=== PATIENT | female | born 1985 | race Caucasian/White ===

== ENCOUNTER → 2020-11-24 | Outpatient (CLI) | payer OTHER ==
--- NOTE | 2020-11-25 03:46 | KCIC ---
Study: MR cervical spine without contrast INDICATION: Cervical radiculopathy. Right upper extremity numbness. COMPARISON: None. TECHNIQUE: Multiplanar MR imaging of the cervical spine performed without the use of intravenous cont rast. FINDINGS: Normal cord signal and morphology. The visualized posterior fossa contents are unremarkable. Marrow signal is within normal limits. Maintained vertebral body and disc space height. No listhesis. Unremarkable prevertebral and dorsal paraspinous soft tissues. Tornwaldt cyst incidentally noted. Yusra tebral artery flow voids are maintained. C1-C2: The region of the foramen magnum is patent. C2-C3: Mild left paracentral disc osteophyte protrusion and left uncovertebral joint hypertrophy. No significant facet arthrosis. Patent central canal and neural foramina. C3-C4: Uncovertebral joint hypertrophy on the left. Mild left facet arthrosis. Patent central canal a nd neural foramina. C4-C5: Mild uncovertebral joint hypertrophy on the left. Unremarkable facet joints. Patent central ca nal and neural foramina. C5-C6: Mild uncovertebral joint hypertrophy on the left. Unremarkable facet joints. Patent central ca nal and neural foramina. C6-C7: Trace central protrusion.. No significant facet arthrosis. Patent central canal and neural for allison. C7-T1: No significant spondylosis. Patent central canal and neural foramina. T1-T2 and T2-T3: Patent central canal and neural foramina. IMPRESSION: Only mild degenerative changes, as outlined above, without any associated central canal or neural for aminal stenosis. Normal cord signal and morphology. Electronically signed by: JOHNSON TOTH MD (11/25/2020 3:43 AM) [facility]
== END ==
LOC: KCIC MRI 13:09
PROVIDERS: ATTEND Family Medicine
DX: M47.22 Other spondylosis with radiculopathy, cervical region (principal)
CPT/HCPCS: 72141

== ENCOUNTER → 2021-01-19 | Outpatient (CLI) | payer OTHER ==
--- NOTE | 2021-01-19 11:59 | KCIC ---
Bilateral diagnostic digital mammograms with 3-D tomosynthesis: Reason for examination: Right breast lump and pain since October. Second Covid vaccination on 021. Baseline exam. Bilateral mammograms in CC and oblique projections were obtained with 2-D imaging and 3-D tomosynthes is imaging on a Siemens Inspiration unit and reviewed on the workstation. Interpretation was made wit h the benefit of CAD. The skin and nipples show no abnormalities. No abnormal axillary lymph nodes are seen. The breast par enchyma is extremely dense. (Breast density: Category D.) There is a small circumscribed nodule at th e 10:00 position of the right breast which appears circumscribed and measures 8.8 mm in greatest dime nsion and is located approximately 5 cm from the nipple. There is improvement in the axillary tail of Luna corresponds to the area of clinical concern. There are no other dominant masses, suspicious c alcifications or architectural distortion. Impression: Small nodule at the 10:00 position of the right breast 5 cm from the nipple. Tissue at the axillary t ail of Luna corresponds to the area of clinical concern. Ultrasound to follow. Your patient's mammogram demonstrates that she has dense breast tissue (breast density category C or D), which could hide abnormalities, and if she has other risk factors for breast cancer that have bee n identified, she might benefit from supplemental screening tests that may be suggested by you as her ordering physician. Dense breast tissue, in and of itself, is a relatively common condition. Therefo re, this information is not provided to cause undue concern, but rather to raise your awareness and t o promote discussion with your patient regarding the presence of other risk factors, in addition to d ense breast tissue. Your patient's mammography results will be sent to her. BI-RAD Category 0: Incomplete. Needs additional imaging evaluation. Right breast ultrasound: Ultrasound examination of the right breast and axilla was performed. At the 10:00 position 5 cm from the nipple and corresponding to the nodule seen mammographically, there is a intramammary lymph node measuring 8.3 mm in greatest dimension which shows normal cortical thickness and fatty cortex. No tabitha picious lesions are seen in the breast. In the area of concern at the axillary tail of Luna, there is some fibroglandular tissue but no focal nodules. No abnormal appearing lymph nodes are seen in the right axilla. IMPRESSION: Small benign-appearing intramammary lymph node at the 10:00 position 5 cm from the nipple. Fibrogland ular tissue at the axillary tail of Jeremy corresponds to the area of clinical concern with no focal lesions seen at the site. Recommend clinical follow-up and routine mammographic follow-up. BI-RADS Category 2: Benign. "Our facility is accredited by the [employer] Mammography Program." This patient's information has been entered into a reminder system for the patient to be notified wit h the results of her examination and a target date for the next mammogram. Electronically signed by: Kourtney Skinner MD (01/19/2021 11:56 AM) [id number]
== END ==
LOC: KCIC US 09:00
PROVIDERS: ATTEND Obstetrics & Gynecology
DX: N64.4 Mastodynia (principal); N63.11 Unspecified lump in the right breast, upper outer quadrant
CPT/HCPCS: 76641; 77066; G0279; 77062